=== PATIENT | male | born 2000 | race Caucasian/White ===

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

== ENCOUNTER 2022-06-18 15:27 | Emergency (ER) | payer OTHER, SELFPAY ==
--- NOTE | 2022-06-18 15:29 | ED.GENADULT ---
HPI - General Adult General Chief complaint: Urogenital-Male Stated complaint: R TESTICLE SWELLING Time Seen by Provider: 06/18/22 15:29 Source: patient Mode of arrival: ambulatory Limitations: no limitations History of Present Illness HPI narrative: 21-year-old male patient presents to the [facility] with complaints of right testicular pain x2 days. Patient states pain came on all the suddenly. 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 Patient states that the pain has gotten worsened but has been taking ibuprofen. Patient has been using some Neosporin cream to the testicles. Patient denies any pain with urination. Patient states he is sexually active but does use contraceptive condoms at every intercourse. Patient denies any penile discharge. Denies any fevers, body aches or chills. Related Data Home Medications Medication Instructions Recorded Confirmed No Home Medications 06/18/22 06/18/22 Allergies Allergy/AdvReac Type Severity Reaction Status Date / Time No Known Allergies Allergy Unknown Verified 06/18/22 15:39 Review of Systems Review of Systems: CONSTITUTIONAL: Denies fever, chills, or sweats. EYES: Denies visual changes, redness, or discharge. ENT: Denies rhinorrhea, congestion, sore throat, or otalgia. CARDIOVASCULAR: Denies chest pain, palpitations, or edema. RESPIRATORY: Denies cough or dyspnea. GASTROINTESTINAL: Denies abdominal pain, nausea, vomiting, or diarrhea. GENITOURINARY: Denies dysuria or hematuria. Positive right testicular pain x2 days SKIN: Denies rash or itching. MUSCULOSKELETAL: Denies back pain, joint pain, or myalgia. NEUROLOGIC: Denies headache, numbness, or weakness. PSYCHIATRIC: Denies anxiety or depression. PMFSH Comments At the time of my signature I agree with nursing past medical history, surgical, social, and family history. There is no relevant family history pertinent to the presenting complaint. Exam Narrative: GENERAL: Well-appearing, well-nourished, and in no acute distress. HEAD: Normocephalic, atraumatic. EYES: PERRLA and EOMI. ENT: Nares clear, no rhinorrhea or epistaxis. Mucous membranes moist. NECK: Supple. No lymphadenopathy CHEST: Clear to auscultation. No respiratory distress. HEART: Regular rate and rhythm. No murmur heard. Normal peripheral pulses. ABDOMEN: Soft, nontender, nondistended, normal active bowel sounds. : Normal external genitalia, circumcised male. No lesions or rash present. Urinary meat us clear. Foreskin retracts easily. patient's right testicle is swollen, warm to the touch it does appear to be hardened as well as the mass is palpable to the testicle. EXTREMITIES: Normal range of motion. No edema. SKIN: Warm, dry, no rash. NEURO: No focal deficits. Alert and oriented x3. Course Course Level of Care: Express Care Visit Vital Signs Vital signs: Vital Signs Temperature 36.2 C L 06/18/22 15:40 Pulse Rate 118 H 06/18/22 15:40 Respiratory Rate 16 06/18/22 15:40 Blood Pressure 145/99 H 06/18/22 15:40 Pulse Oximetry 100 06/18/22 15:40 Temperature 36.2 C L 06/18/22 15:40 Pulse Rate 118 H 06/18/22 15:40 Respiratory Rate 16 06/18/22 15:40 Blood Pressure 145/99 H 06/18/22 15:40 Pulse Oximetry 100 06/18/22 15:40 vital Signs reviewed Transfer Transfered to: [facility] Transportation: Other ( private vehicle with significant other) Transfer rationale: right testicular pain Accepting physician: natali Westbrook Transfer comments: called spoke with natali Westbrook give her report on patient with complaints of sudden onset of right testicular pain x2 days. Patient does have right warm swollen testicle what appears to be some type mass but unable to rule out torsion at this time. Being sent to [facility] for further evaluation. Medical Decision Making MDM Narrative Medical decision making narrative: Discussed patient that plan car
[2022-06-18 15:40] VITALS: BP 145/99; PULSE 118; RESP 16; TEMP 36.2; O2SAT 100
== END 2022-06-18 15:55 | disposition short-term general hospital (02) ==
PROVIDERS: Emergency Provider Nurse Practitioner Family
DX: N50.811 Right testicular pain (principal); J45.909 Unspecified asthma, uncomplicated
CPT/HCPCS: 99212; G0463

== ENCOUNTER 2022-06-18 16:13 | Day surgery (SDC) | payer OTHER, SELFPAY ==
[2022-06-18] VITALS (7 sets, daily range): BP systolic 132–152; BP diastolic 79–100; PULSE 91–125; RESP 11–20; TEMP 36.6–37.1; O2SAT 98–100
--- NOTE | ~2022-06-18 | US_ITS ---
EXAMINATION: US scrotum doppler DATE: 06/18/2022 17:40 INDICATION: Testicular pain. TECHNIQUE: Grayscale and Doppler ultrasound images of the testes were obtained. COMPARISON: None. FINDINGS: The right testis measures 5.2 x 2.7 x 3.4 cm. The left testis measures 4.3 x 2.5 x 3.3 cm. There is diffuse heterogeneous hypoechogenicity in right testis. There is no vascular flow in right t estis on color Doppler images. There is normal vascular flow in left testis. The right epididymis dem onstrates heterogeneous echogenicity. The left epididymis is normal with normal vascular flow. There is no varicocele or hydrocele. IMPRESSION: 1. Diffusely heterogeneous right testis, consistent with infarct. 2. Absent vascular flow in right testis, consistent with torsion. 3. I discussed these findings with Dr. Campbell. Reviewed, dictated and finalized at location A. NT [employer] IMPRESSION: 1. Diffusely heterogeneous right testis, consistent with infarct. 2. Absent vascular flow in right testis, consistent with torsion. 3. I discussed these findings with Dr. Campebll.
--- NOTE | 2022-06-18 16:56 | ED.GENADULT ---
HPI - General Adult General Chief complaint: Urogenital-Male Stated complaint: SCROTAL SWELLING Time Seen by Provider: 06/18/22 16:27 Source: RN notes reviewed History of Present Illness HPI narrative: Patient presents emergency room from home for testicular pain. Patient states that 2 days ago at work he had to crawl through a small crawlspace he states following that he began to notice some pain in his right testicle that is progressively worsened states that the right testicles become swollen and extraordinarily tender states that they are to the urgent care today and was referred to the ED for further evaluation he states he has had 1 episode of emesis and is unsure if that is from the food he ate or from the pain he denies any fevers or chills abdominal pain or any other symptoms denies any pain with urination Related Data Home Medications Medication Instructions Recorded Confirmed No Home Medications 06/18/22 06/18/22 Allergies Allergy/AdvReac Type Severity Reaction Status Date / Time No Known Allergies Allergy Unknown Verified 06/18/22 16:25 Review of Systems Review of Systems: Gen.: Denies fevers or chills ENT: Denies congestion Respiratory: Denies shortness of breath or cough CV: Denies chest pain or palpitations GI: Denies abdominal pain or diarrhea. Reports nausea and vomiting x1 see HPI Musculoskeletal: Denies back pain or muscle pain Neuro: Denies numbness, tingling, weakness or focal weakness Skin: Denies rash Except as documented, all other systems reviewed and negative [facility] Past Medical History Medical History Patient denies significant medical history Social History Social History Smoking status: Never smoker Exam Narrative: APPEARANCE: No acute distress, nontoxic, resting in bed EYES: EOMI HEENT: Normocephalic, atraumatic, OMM RESPIRATORY: No respiratory distress Clear to auscultation bilaterally with no rhonchi wheezing or rales. CARDIOVASCULAR: Regular rate and rhythm without murmurs rubs or gallops. ABDOMINAL: Soft, nontender, nondistended, no rebound or guarding : No skin lesions no phimosis or paraphimosis, swelling of the scrotum with enlarged right testicle that is diffusely tender to palpation left testicle is nontender to palpate no scrotal erythema MUSCULOSKELETAl: Moves all extremities. No clubbing, cyanosis or edema. NEURO: Awake and alert. Following commands, speech normal, no focal deficits SKIN:: Warm, dry. No rashes lesions or abrasions PSYCHIATRIC: Normal affect/mood, Course Course Emergency Course: Discussed with Dr. Sanchez presentation work-up and plan to take the patient to the OR this evening Discussed with patient and family results of work-up discussed need for surgery and torsion and testicle with ischemia all questions answered discussed need for OR Vital Signs Vital signs: Vital Signs Temperature 98.8 F 06/18/22 16:21 Pulse Rate 125 H 06/18/22 16:21 Respiratory Rate 20 06/18/22 16:21 Blood Pressure 144/100 H 06/18/22 16:21 Pulse Oximetry 99 06/18/22 16:21 Oxygen Delivery Room Air 06/18/22 16:21 Temperature 98.8 F 06/18/22 16:21 Pulse Rate 125 H 06/18/22 16:21 Respiratory Rate 20 06/18/22 16:21 Blood Pressure 144/100 H 06/18/22 16:21 Pulse Oximetry 99 06/18/22 16:21 Oxygen Delivery Room Air 06/18/22 16:21 Medical Decision Making Vital Signs Vital Signs: Vital Signs Temperature 98.8 F 06/18/22 16:21 Pulse Rate 125 H 06/18/22 16:21 Respiratory Rate 20 06/18/22 16:21 Blood Pressure 144/100 H 06/18/22 16:21 Pulse Oximetry 99 06/18/22 16:21 Oxygen Delivery Room Air 06/18/22 16:21 Temperature 98.8 F 06/18/22 16:21 Pulse Rate 125 H 06/18/22 16:21 Respiratory Rate 20 06/18/22 16:21 Blood Pressure 144/100 H 06/18/22 16:21 Pulse Oximetry 99 06/18/22 16:21 Oxy
[2022-06-18] MEDS: HYDROcodone/acetaminophen (*CRX) 5-325 MG TABLET 1 TAB PO (16:57)
[2022-06-18] MEDS: SODIUM CHLORIDE 0.9% IV 1,000 ML 999 ML IV CONT (18:09)
[2022-06-18 18:10] LABS: Basophils Percent Auto 0.2 % (0.2-1.2); Eosinophils Absolute Auto 0.2 K/mm3 (0-0.3); Eosinophils Percent Auto 1.8 % (0-4.4); Hematocrit 43.2 % (42.0-52.0); Hemoglobin 15.1 g/dL (14.0-18.0); Immature Granulocyte Absolute 0.03 K/mm3 (0.00-0.031); Immature Granulocyte Percent A 0.3 % (0-0.5); Lymphocytes Absolute Auto 1.81 K/mm3 (0.9-3.2); Lymphocytes Percent Auto 18.9 % (18.3-44.2); Mean Corpuscular Hemoglobin 29.5 pg (26-34); Mean Corpuscular Volume 84.5 fl (80-100); Mean Platelet Volume 9.9 fl (7.4-10.4); Monocytes Absolute Auto 0.8 K/mm3 (0.1-0.6); Monocytes Percent Auto 8.7 % (2.6-8.5); Neutrophils Absolute Auto 6.7 K/mm3 (1.3-6.7); Neutrophils Percent Auto 70.1 % (45.5-73.1); Platelet Count Result 334 k/mm3 (150-375); Red Blood Count 5.11 M/mm3 (4.6-6.20); Red Cell Distribution Width 11.7 % (11.5-14.5); White Blood Count 9.6 K/mm3 (4.5-10.0)
[2022-06-18 18:20] LABS: Alanine Aminotransferase 23 U/L (6-50); Albumin Level 4.4 g/dL (3.7-5.6); Alkaline Phosphatase 101 U/L (58-237); Anion Gap 9 mmol/L (8-16); Aspartate Amino Transferase 35 U/L (17-59); Bilirubin,Total 0.5 mg/dL (0.2-1.3); Blood Urea Nitrogen 16 mg/dL (8-21); Calcium 8.4 mg/dL (8.9-10.7); Carbon Dioxide 26 mmol/L (22-30); Chloride 104 mmol/L (98-107); Estimated CRCL calculation 127 ml/min; Estimated Glomerular Filt Rate > 60; Glucose 96 mg/dL (65-110); Potassium 3.7 mmol/L (3.4-5.0); Prothrombin Time 12.6 Seconds (11.1-14.7); Sodium 139 mmol/L (134-143)
--- NOTE | 2022-06-18 18:20 | WPDANESEPPF ---
Anes - Initial Pre Proc Eval Procedure: Operation Date: 06/18/22 19:00 Proposed Procedures p Orchiectomy Scrotal Approach - Keagan Sanchez MD s Orchiopexy - Keagan Sanchez MD Date/Time: 06/18/22 18:20 Surgeon: Keagan Sanchez MD Pre Op Diagnosis: Testicular Torsion Pre Op Diagnosis: SCROTAL SWELLING Patient Data Age: 21 Gender: M Height: 1.83 m Weight: 100 kg Last Vital Signs Temp 37.1 C 06/18/22 16:21 Pulse 125 H 06/18/22 16:21 Resp 20 06/18/22 16:21 BP 144/100 H 06/18/22 16:21 Pulse Ox 99 06/18/22 16:21 O2 Del Method Room Air 06/18/22 16:21 Allergies Allergy/AdvReac Type Severity Reaction Status Date / Time No Known Allergies Allergy Unknown Verified 06/18/22 16:25 Home Medications Medication Instructions Recorded Confirmed Type No Home Medications 06/18/22 06/18/22 History Laboratory Tests 06/18/22 06/18/22 06/18/22 17:58 17:58 17:58 WBC 9.6 K/mm3 K/mm3 (4.5-10.0) RBC 5.11 M/mm3 M/mm3 (4.6-6.20) Hgb 15.1 g/dL g/dL (14.0-18.0) Hct 43.2 % % (42.0-52.0) MCV 84.5 fl fl (80-100) MCH 29.5 pg pg (26-34) MCHC 35.0 g/dl g/dl (32-36) RDW 11.7 % % (11.5-14.5) Plt Count 334 k/mm3 k/mm3 (150-375) MPV 9.9 fl fl (7.4-10.4) Immature Gran % (Auto) 0.3 % % (0-0.5) Neut % (Auto) 70.1 % % (45.5-73.1) Lymph % (Auto) 18.9 % % (18.3-44.2) [place] % (Auto) 8.7 % H % (2.6-8.5) Eos % (Auto) 1.8 % % (0-4.4) Baso % (Auto) 0.2 % % (0.2-1.2) Lymph # (Auto) 1.81 K/mm3 K/mm3 (0.9-3.2) [place] # (Auto) 0.8 K/mm3 H K/mm3 (0.1-0.6) Eos # (Auto) 0.2 K/mm3 K/mm3 (0-0.3) Baso # (Auto) 0.0 K/mm3 K/mm3 (0.0-0.1) Abs Immat Gran (auto) 0.03 K/mm3 K/mm3 (0.00-0.031) Absolute Neuts (auto) 6.7 K/mm3 K/mm3 (1.3-6.7) Absolute Nucleated RBC 0.0 K/mm3 K/mm3 (0.0-0.012) Nucleated RBC % 0.0 % % (0.0-0.2) PT Pending INR Pending APTT Pending Sodium Pending Potassium Pending Chloride Pending Carbon Dioxide Pending Anion Gap Pending BUN Pending Creatinine Pending Estim Creat Clear Calc Pending Estimated GFR Pending Glucose Pending Calcium Pending Total Bilirubin Pending AST Pending ALT Pending Alkaline Phosphatase Pending Total Protein Pending Albumin Pending Patient hx anesthesia problems: none Family hx anesthesia problems: none Prior surgeries: None Results Review: All pre-operative results and documents have been reviewed as part of the pre-operative evaluation. [facility] Past Medical History Medical History Patient denies significant medical history Social History Social History Smoking status: Never smoker Anes - Eval Final PreProcedure Day of Procedure 06/18/22 18:20 Patient weight: obese Heart: regular rate and rhythm Lungs: clear to auscultation and normal air movement Airway: Mallampati scale class III Neurological: alert and oriented Last oral intake: 4 hours ASA classification: I Emergent: yes Anesthetic plan: proceed Anesthesia type and monitoring: general and standard monitoring Results Review: All pre-operative results and documents have been reviewed as part of the pre-operative evaluation. Informed Consent: The patient's anesthetic plan and its attendant risks and benefits were discussed with the patient/family/POA. Questions were solicited and answers provided to the satisfaction of the patient/family/POA.
[2022-06-18 18:21] LABS: Partial Thromboplastin Time 30.1 SECONDS (22.3-36.8)
--- NOTE | 2022-06-18 18:45 | WPDURCON ---
Assessment and Plan Assessment and plan (1) Right testicular torsion: Code(s): N44.00 - Torsion of testis, unspecified Status: Acute Assessment and Plan: we will plan scrotal exploration. Probable left orchiopexy and right orchiectomy. He understands if the right testicle is salvageable I will attempt to do so otherwise he will have an orchiectomy. We discuss issues surrounding unilateral orchiectomy. I informed him he should have normal hormonal levels as well as fertility. He also understands the risk of bleeding, infection, damage to the normal testicle. He agrees to proceed. Discussed with his father as well. Urology Consult Note HPI Date Seen: 06/18/22 Requesting Physician: Keagan Sanchez MD Primary Care Provider: [facility] Consult Narrative Narrative: Phil Padilla is a 21 year old male with and acute Onset of right testicular pain on at work. he states he was crawling through a crawl space in afterwards noted scrotal pain. This did not keep him from working and he actually works several more days. He does endorse nausea with vomiting. He states the pain has been waxing and waning. He eventually presented to outside urgent care. They recommended evaluation emergency room. An ultrasound was done which shows torsion of the right testicle and probable infarction. He has no other pertinent history. He is sexually active. His father and his girlfriend are both here with him. On exam his right testis is acutely swollen and tender. We will plan on scrotal exploration. He will need an orchiopexy on the left. He understands due to the fact this torsion has been going on for several days it is very unlikely I will be able to stay right testicle. This surgeryis being performed on emergency basis. Review of Systems Review of Systems: All systems reviewed & are unremarkable except as noted in HPI and below PMFSH Past Medical History Medical History Patient denies significant medical history Social History Social History Smoking status: Never smoker Comments He works in the [employer] industry. Meds Home Medications and Allergies Home Medications Medication Instructions Recorded Confirmed Type No Home Medications 06/18/22 06/18/22 History Allergies Allergy/AdvReac Type Severity Reaction Status Date / Time No Known Allergies Allergy Unknown Verified 06/18/22 16:25 Vital Signs Vital Signs - 24 hr 06/18/22 16:21 06/18/22 18:44 Temperature 98.8 F Pulse Rate 125 H 98 Respiratory Rate 20 16 Blood Pressure 144/100 H Pulse Oximetry 99 98 Oxygen Delivery Room Air Exam Const: General: cooperative, healthy appearing, no acute distress, awake, Physically active, anxious and obese; No acute distress HENMT: Head: normal to inspection and No palpable skull fracture present Eyes: General: appearance normal, both eyes and all related structures Neck: Neck: normal visual inspection and full ROM Resp: Effort & Inspection: normal respiratory effort, able to speak in complete sentences, no grunting, not labored and no nasal flaring GI: Inspection: normal to inspection : Other: Phallus is normal. He is circumcised. Left testicle is palpably normal. There is no scrotal erythema. Right testicle is marked'y enlarged and painful. Overlying scrotal skin is normal Back/Spine/Pelvis: Back: no CVA tenderness Skin: General skin exam: normal color, no rashes or lesions noted and elasticity normal Neuro: General: patient oriented x3 and Normal light touch and pain sensation Extrem: General: normal to inspection and full ROM Psych: Appearance: grossly normal and well kempt Results Labs 06/18/22 17:58 06/18/22 17:58 Labs: Short CBC 06/18/22 Range/Units 17:58 WBC 9.6 (4.5-10.0) K/mm3 H
--- NOTE | 2022-06-18 18:50 | WPDHPUPDATE1 ---
History and Physical Update Update Date/Time: 06/18/22 18:50 History and Physical has been reviewed, including an updated exam of the patient. There are NO changes in the patient's condition. Risks, benefits, and alternatives have been discussed and questions answered. Patient agrees to proceed with procedure.
[2022-06-18] MEDS: LACTATED RINGERS 1,000 ML 30 ML IV CONT (19:00)
[2022-06-18] MEDS: ceFAZolin SODIUM 1 GM VIAL IV PUSH (19:15)
[2022-06-18] MEDS: BUPIVACAINE HCL 0.25% PF 30 ML VIAL 10 ML INFILTRATE (19:52)
--- NOTE | 2022-06-18 20:02 | P.OP_ITS ---
Procedure Note - Detailed Date of Procedure 06/18/22 Pre-op Diagnosis Right testicular torsion Post-op Diagnosis Same Procedure Performed Scrotal exploration. Left orchiopexy. Right orchiectomy Surgeon Keagan Sanchez MD Anesthesia General Indications This is a gentleman who has come to the ER with a several-day history of right testicular pain. Ultrasound documents right testicular torsion. He has taken the operating room for exploration. He understands we will probably end up doing a left orchiopexy and right orchiectomy. He understands risks of bleeding, infection, damage to the testicle, wound related complications. He agrees to proceed Findings Infarcted right testicle Description of Procedure He has correctly identified. Informed consent obtained. From the operating room. He was given general anesthesia. He was placed in the supine position. Genitalia prepped and draped in a sterile fashion. Time-out performed. I made a midline incision the scrotal refe. I 1st turned my attention towards the right hemiscrotum. I dissected down through the dartos tissues. The dartos tissue was quite edematous. I entered the tunica vaginalis. The testicle was delivered. It was thrombosed and infarcted. There was hemorrhagic fluid inside the right hemiscrotum. I found 5 twists in the spermatic cord. I untwisted these by rotating the testicle counter-clockwise. I then wrapped it in a moist 4 x 4. I turned my attention towards contralateral scrotum. I dissected down to the dartos tissues. I entered the tunica vaginalis. I delivered the left testicle. It was normal without twisting. There was a zuniga clapper deformity. I then performed a left orchidopexy. I used permanent Ethibond suture to fix the testicle medially, laterally, and inferiorly. The testicle was placed back in the hemiscrotum and the sutures were tied down. I took great care to ensure that I did not twist the testicle and placed it back in the hemiscrotum. I then re-examined the contralateral testicle. It did not pink up at all. It was thrombosed and dark in color consistent with a long-term torsion with no blood supply. I dissected dartos tissue away from the spermatic cord. I t he vas from the testicular artery. I clamped them separately. I cut the spermatic cord removing the testicle. I then ligated the vas separately from the testicular artery. I then ligated them all together with a silk suture. I assured hemostasis. I closed the dartos layer obliterating the space. I then closed the 2nd layer with a chromic suture. I then closed the skin with a subcuticular suture. Local anesthesia was applied. Vaseline gauze was applied. Scrotal support and fluffs were placed. He was awakened transferred to PACU in stable condition Implants None Estimated Blood Loss 10 Pathology Yes (Right testis) Complications No immediate complications Condition Stable Disposition PACU
[2022-06-18] MEDS: fentaNYL CITRATE INJ (*CRX) 100 MCG/2 ML VIAL 25 MCG IV PUSH ×3 (20:15→20:27)
[2022-06-18] MEDS: oxyCODONE HCL (*CRX) 5 MG TAB IR PO (21:02)
== END 2022-06-18 21:40 | disposition home or self-care (01) ==
LOC: ANHED 16:38 → ANHSURGERY 17:46
PROVIDERS: Emergency Provider Emergency Medicine; Visit Provider Urology
PROC: (CPT 54520; principal; 2022-06-18 19:00)
PROC: (CPT 54520; 2022-06-18 19:00)
DX: N50.1 Vascular disorders of male genital organs (principal); N44.00 Torsion of testis, unspecified; E66.9 Obesity, unspecified
CPT/HCPCS: 54520; 54640; 36415; 76870; 80053; 85025; 85610; 85730; 88305; 93976; 99285; A9270; J0330; J0690; J1100; J1170; J2250; J2405; J2704; J3010; J7030; J7120